=== PATIENT | male | born 1955 | race Two or more races ===

== ENCOUNTER 2022-06-24 11:08 | Emergency (ER) | payer OTHER ==
[~2022-06-24] VITALS: Ht 167.6 cm; Wt 63.6 kg
[2022-06-24 11:15] VITALS: BP 138/70
[2022-06-24] MEDS ORDERED: KETOROLAC TROMETH 60MG/2ML VIAL IM ONE (13:30)
[2022-06-24] MEDS ORDERED: ACE3T PO (14:34)
== END 2022-06-24 15:03 | disposition home or self-care (01) ==
LOC: ER 11:08
DX: S42.401D Unspecified fracture of lower end of right humerus, subsequent encounter for fracture with routine healing (principal); S82.002D Unspecified fracture of left patella, subsequent encounter for closed fracture with routine healing; X58.XXXD Exposure to other specified factors, subsequent encounter
CPT/HCPCS: 73070; 73562; 96372; 99284; J1885

== ENCOUNTER 2022-07-20 10:13 | Emergency (ER) | payer OTHER ==
[~2022-07-20] VITALS: Ht 167.6 cm; Wt 57.0 kg
[~2022-07-20 10:13] MED LIST: ACE3T PO
[2022-07-20 12:48] LABS: Albumin 3.7 g/dL (3.4-5.0); BUN/Creatinine Ratio 18.3; Calcium 8.1 mg/dL (8.5-10.1)
[2022-07-20 12:51] LABS: Bilirubin, Total 1.4 mg/dL (0.2-1.0); Total Protein 5.8 g/dL (6.4-8.2)
[2022-07-20 13:46] LABS: INR 1.17 (0.9-1.15); Partial Thromboplastin Time 25.4 sec (24.6-33.4)
[2022-07-20 14:23] LABS: Basophils # (auto) 0.1 10 ^3/uL (0-0.2); Basophils % (auto) 3.2 % (0.0-2.0); Eosinophils # (auto) 0.2 10 ^3/uL (0-0.8); Eosinophils % (auto) 10.1 % (0.0-7.0); Hematocrit 28.5 % (41.0-53.0); Hemoglobin 8.1 g/dL (13.5-17.5); Lymphocytes # (auto) 0.3 10 ^3/uL (0.4-5.4); Lymphocytes % (auto) 14.9 % (10.0-50.0); Mean Corpuscular Hemoglobin 18.1 pg (28.0-32.0); Mean Corpuscular Hgb Conc. 28.4 g/dL (32.0-36.0); Mean Corpuscular Volume 63.7 fL (80.0-100.0); Monocytes # (auto) 0.2 10 ^3/uL (0-1.3); Monocytes % (auto) 9.1 % (0.0-12.0); Neutrophils # (auto) 1.4 10 ^3/uL (1.6-8.6); Neutrophils % (auto) 62.7 % (37.0-80.0); Nucleated Red Blood Cells % 0.1 %; Red Blood Cells 4.47 10^6/uL (4.5-5.90); Red Cell Distribution Width 22.7 % (11.8-14.3); White Blood Cell 2.2 10^3/uL (4.4-10.8)
[2022-07-20 17:00] VITALS: BP 121/68
== END 2022-07-20 18:33 | disposition home or self-care (01) ==
LOC: ER 10:13
DX: D64.9 Anemia, unspecified (principal); E11.9 Type 2 diabetes mellitus without complications; I10 Essential (primary) hypertension; F17.210 Nicotine dependence, cigarettes, uncomplicated
CPT/HCPCS: 36415; 71046; 80053; 85025; 85610; 85730; 86850; 86900; 86901